=== PATIENT | male | born 1990 | race African-American/Black ===

== ENCOUNTER 2025-04-22 14:09 | Emergency (ER) | payer OTHER ==
[2025-04-22 15:02] LABS: Absolute Lymphocytes (CBC) 0.7 K/uL (0.7-4.9); Hematocrit 48.2 % (39.6-49.0); Hemoglobin 16.0 g/dL (13.6-17.9); MCH 28.1 pg (27.0-35.0); MCHC 33.2 g/dL (32.0-36.0); MCV 84.8 fL (80-100); MPV 7.8 fL (7.6-11.3); Nucleated RBC Absolute Count 0.0 (0-0); Nucleated Red Blood Cells % 0.0 % (0-0); RBC Red Blood Cell Count 5.69 M/uL (4.33-5.43); White Blood Count 2.70 thou/uL (4.3-10.9)
[2025-04-22 15:08] LABS: Sqamous Epithelial <5 /HPF (None Seen); Urine Culture Reflex Order NOT NEEDED; Urine Microscopic Reflex YN ORDER UMIC
[2025-04-22 15:15] LABS: METHAMPHETAM NEGATIVE (NEGATIVE); THC Cannibis NEGATIVE (NEGATIVE)
[2025-04-22 15:30] LABS: ALT/SGPT 38.0 U/L (16-61); AST/SGOT 22.0 U/L (15-37); Albumin 4.2 g/dL (3.4-5.0); Albumin/Globulin Ratio 1.1 (1.1-1.8); Alkaline Phosphatase 81.0 U/L (45-117); Anion Gap 7.7 mEq/L (5.0-15.0); BUN Blood Urea Nitrogen 14.0 mg/dL (7-18); Bilirubin Indirect, Calculated 1.0 mg/dL (0.2-0.8); Globulin 3.9 g/dL (2.3-3.5); Glucose Level 110.0 mg/dL (74-106); Magnesium 2.4 mg/dL (1.6-2.4); Potassium 3.7 mEq/L (3.5-5.1); Thyroid Stimulating Hormone 0.46 uIU/mL (0.358-3.740); Troponin High Sensitivity 28.7 pg/mL (<58.9)
--- NOTE | 2025-04-22 16:16 | RAD REPORT ---
EXAM: Chest Single View HISTORY: 34 years Male PALPITATIONS COMPARISON: No prior exams FINDINGS: LUNGS/PLEURA: The lungs are clear. No pleural effusions or pneumothorax. No pulmonary edema. CARDIAC/MEDIASTINUM: The cardiac silhouette is within normal limits. UPPER ABDOMEN: No significant abnormality. BONES: No acute abnormality. LINES/TUBES/OTHER: N/A IMPRESSION: No evidence of acute cardiopulmonary disease.
[2025-04-22 17:29] LABS: Blood Morphology Comment NOT SEEN (NOT SEEN); White Blood Cell Scan OK (OK)
--- NOTE | 2025-04-22 17:41 | EDPHYS ---
Physician Documentation [facility] Name: Katie Bennett Age: 34 yrs Sex: Male : 1990 Arrival Date: 04/22/2025 Time: 14:09 Bed 14 Private MD: ED Physician Peter Jacobsen HPI: 04/22 14:25 This 34 yrs old Black Male presents to ER via Ambulatory with complaints of Heart cp racing,head pressure, fatigue. 14:25 The patient presents with a history of heart racing. cp 14:25 Context: The symptoms occur at rest. cp 14:25 Onset: The symptoms/episode began/occurred for months, intermittent. Associated signs cp and symptoms: Pertinent positives: fatigue, head pressure, weight loss. Severity of symptoms: in the emergency department the symptoms have improved. Historical: - Allergies: 14:22 PENICILLINS; hb 14:22 Zithromax; hb - Home Meds: 14:22 None [Active]; hb - PMHx: 14:22 Asthma; hb - PSHx: 14:22 None; hb - Immunization history:: Adult Immunizations up to date. - Infectious Disease History:: Denies. - Social history:: Smoking status: Patient denies any tobacco usage or history of. ROS: 14:30 Constitutional: Positive for fatigue, weight loss, Negative for body aches, chills, cp fever, 14:30 Eyes: Negative for injury, pain, redness, and discharge, cp 14:30 ENT: Negative for drainage from ear(s), ear pain, sore throat, 14:30 Cardiovascular: Positive for palpitations, Negative for edema, 14:30 Respiratory: Negative for cough, shortness of breath, wheezing, 14:30 Abdomen/GI: Negative for abdominal pain, vomiting, diarrhea, constipation, 14:30 Neuro: Positive for headache, Negative for altered mental status, numbness, syncope, near syncope, weakness, 14:30 All other systems are negative, Exam: 14:35 Constitutional: The patient appears in no acute distress, alert, awake, cp non-diaphoretic, non-toxic, well developed, well nourished, 14:35 Head/Face: Normocephalic, atraumatic. cp 14:35 Eyes: Periorbital structures: appear normal, Conjunctiva: normal, no exudate, no injection, Sclera: no appreciated abnormality, Lids and lashes: appear normal, bilaterally, 14:35 ENT: External ear(s): are unremarkable, Nose: is normal, Mouth: Lips: moist, Oral mucosa: moist, Posterior pharynx: Airway: no evidence of obstruction, patent, 14:35 Neck: ROM/movement: is normal, is supple, without pain, no range of motions limitations, 14:35 Chest/axilla: Inspection: normal, Palpation: is normal, no crepitus, no tenderness, 14:35 Cardiovascular: Rate: normal, Rhythm: regular, Edema: is not appreciated, JVD: is not appreciated, 14:35 Respiratory: the patient does not display signs of respiratory distress, Respirations: labored breathing, is not present, intercostal retractions, are absent, shallow respirations, are not present, Breath sounds: decreased breath sounds, are not appreciated, stridor, is not appreciated, wheezing: is not appreciated, 14:35 Abdomen/GI: Inspection: abdomen appears normal, Bowel sounds: active, all quadrants, Palpation: abdomen is soft and non-tender, in all quadrants, 14:35 Back: pain, is absent, ROM is normal, 14:35 Neuro: Orientation: to person, place \T\ time. Mentation: is normal, Cerebellar function: is grossly normal, Motor: moves all fours, strength is normal, Sensation: is normal, Gait: is steady, at a normal pace, without difficulty, 14:40 ECG was reviewed by the Attending Physician. cp Vital Signs: 14:18 BP 130 / 71; Pulse 98; Resp 16; Temp 98.4(O); Pulse Ox 100% on R/A; Weight 71.21 kg; hb Height 6 ft. 0 in. ; Pain 0/10; 15:00 BP 122 / 67; Pulse 73; Resp 16; Pulse Ox 99% on R/A; db 15:30 BP 118 / 72; Pulse 75; Resp 24; Pulse Ox 99% ; db 16:00 BP 105 / 85; Pulse 82; Resp 20; Pulse Ox 100% ; db 16:45 BP 125 / 62; Pulse 79; Resp 16; Pulse Ox 98% on R/A; db 17:30 BP 131 / 74; Pulse 71; Resp 20; Pulse Ox 98% ; db 18:00 BP 127 / 77; Pulse 73; Resp 18; Pulse Ox 99% ; db 14:18 Body Mass Index 21.29 (71.21 kg, 182.88 cm) hb 14:18 Pain Scale: Adult hb MDM: 14:24 Medical Screening Exam initiated 15:00 Differential diagnosis: arrythmia, dehydration, stress disorder, hyperthyroidism, cp hypothyroidism, illegal drug use. 17:40 Data reviewed: vital signs, nurses notes, lab test result(s), EKG, radiologic studies, cp plain films, and as a result, I will discharge patient. 17:41 I considered the following discharge prescriptions or medication management in the emergency department Medications were administered in the Emergency Department. See MAR. 17:41 Independent interpretation of the following test(s) in the Emergency Department EKG: See my EKG interpretation above. Counseling: I had a detailed discussion with the patient and/or guardian regarding the historical points, exam findings, and any diagnostic results supporting the discharge/admit diagnosis, lab results, radiology results, the need for outpatient follow up, for definitive care, a home care liaison, to return to the emergency department if symptoms worsen or persist or if there are any questions or concerns that arise at home. Response to treatment: the patient's symptoms have mildly improved after treatment, and as a result, I will discharge patient. 04/22 14:21 Order name: Basic Metabolic Panel; Complete Time: 15:31 04/22 15:31 Interpretation: Normal except: GLUC 110; GFR 89. 04/22 14:21 Order name: CBC with Diff; Complete Time: 17:37 04/22 15:31 Interpretation: Normal except: WBC 2.70; RBC 5.69; NEUT A 1.7. 04/22 14:21 Order name: LFT's; Complete Time: 15:31 04/22 15:31 Interpretation: Normal except: BILIT 1.3; BILID 0.3; IBILI, CALC 1.0; GLOB 3.9. 04/22 14:21 Order name: Magnesium; Complete Time: 15:31 04/22 14:21 Order name: Troponin HS; Complete Time: 15:31 04/22 15:32 Interpretation: Reviewed. 04/22 14: Order name: TSH; Complete Time: 15:31 04/22 14:21 Order name: T3 Free; Complete Time: 15:31 cp 04/22 14:21 Order name: UDS; Complete Time: 15:31 cp 04/22 15:32 Interpretation: Reviewed. 04/22 14:21 Order name: UA Rfx Vipul Cult if indicated; Complete Time: 15:31 cp 04/22 15:31 Interpretation: Normal except: UKET 2+; UBLD Trace; UPROT TRACE; URBC 5-10; SPERM cp Present. 04/22 16:26 Order name: Troponin High Sensitivity; Complete Time: 17:37 cp 04/22 17:38 Interpretation: Reviewed. 04/22 17:03 Order name: CBC Smear Scan; Complete Time: 17:37 EDMS 04/22 14:21 Order name: XRAY Chest (1 view); Complete Time: 16:26 cp 04/22 14:21 Order name: Cardiac monitoring; Complete Time: 14:36 cp 04/22 14:21 Order name: EKG - Nurse/Tech; Complete Time: 14:36 cp 04/22 14:21 Order name: IV Saline Lock; Complete Time: 14:55 cp 04/22 14:21 Order name: Labs collected and sent; Complete Time: 14:55 cp 04/22 14:21 Order name: O2 Per Protocol; Complete Time: 14:55 cp 04/22 14:21 Order name: O2 Sat Monitoring; Complete Time: 14:55 cp EC:40 Rate is 74 beats/min. Rhythm is regular. ND interval is normal. QRS interval is normal. cp QT interval is normal. Interpreted by me. Reviewed by me. Administered Medications: No medications were administered Disposition: 18:29 Co-signature as Attending Physician, Peter Jacobsen MD I reviewed the patient's care rn provided by the Advanced Practice Provider and agree with the diagnosis and treatment plan. Disposition Summary: 04/22/25 17:41 Discharge Ordered Notes: Location: Home cp Problem: new cp Symptoms: have improved cp Condition: Stable cp Diagnosis - Palpitations cp - Other malaise and fatigue cp Followup: cp - With: Pb Aleman MD - When: 2 - 3 days - Reason: palpitations Discharge Instructions: - Discharge Summary Sheet cp - Palpitations cp - Fatigue cp - Ambulatory Cardiac Monitoring cp Forms: - Medication Reconciliation Form cp - Antibiotic Education cp - Prescription Opioid Use cp - Patient Portal Instructions cp - Leadership Thank You Letter cp Signatures: Dispatcher Medst EDMS Peter Jacobsen MD MD rn Page, Corey PA-Deepthi PA-C Katelin Chavarria, FAUSTO RN Corrections: (The following items were deleted from the chart) 14:21 14:21 BASIC METABOLIC PANEL+C.LAB.BRZ ordered. EDMS EDMS 14:21 14:21 CBC+H.LAB.BRZ ordered. EDMS EDMS 14:21 14:21 HEPATIC FUNCTION+C.LAB.BRZ ordered. EDMS EDMS 14:21 14:21 MAGNESIUM+C.LAB.BRZ ordered. EDMS EDMS 14:21 14:21 Troponin High Sensitivity+C.LAB.BRZ ordered. EDMS EDMS 14:21 14:21 THYROID STIMULAT HORMONE+C.LAB.BRZ ordered. EDMS EDMS 14:21 14:21 T3 FREE+C.LAB.BRZ ordered. EDMS EDMS 14:21 14:21 URINE DRUG SCREEN+UC.LAB.BRZ ordered. EDMS EDMS 14:21 14:21 UA Rfx Vipul Cult if indicated+U.LAB.BRZ ordered. EDMS EDMS
--- NOTE | 2025-04-22 17:41 | ER ---
Nurse's Notes [facility] Name: Katie Bennett Age: 34 yrs Sex: Male : 1990 Arrival Date: 04/22/2025 Time: 14:09 Bed 14 Private MD: Diagnosis: Palpitations;Other malaise and fatigue Presentation: 04/22 14:18 Chief complaint: Intermittent palpitations and SOB x months, dizziness, fatigue and hb recent 20 pound weight loss. Denies chest pain. Coronavirus screen: At this time, the client does not indicate any symptoms associated with coronavirus-19. Ebola Screen: No symptoms or risks identified at this time. Initial Sepsis Screen: Does the patient meet any 2 criteria? No. Patient's initial sepsis screen is negative. Does the patient have a suspected source of infection? No. Patient's initial sepsis screen is negative. Risk Assessment: Do you want to hurt yourself or someone else? Patient reports no desire to harm self or others. Onset of symptoms is unknown. 14:18 Method Of Arrival: Ambulatory hb 14:18 Acuity: CLEMENCIA 3 hb Historical: - Allergies: 14:22 PENICILLINS; hb 14:22 Zithromax; hb - Home Meds: 14:22 None [Active]; hb - PMHx: 14:22 Asthma; hb - PSHx: 14:22 None; hb - Immunization history:: Adult Immunizations up to date. - Infectious Disease History:: Denies. - Social history:: Smoking status: Patient denies any tobacco usage or history of. Screenin:51 [facility] ED Fall Risk Assessment (Adult) History of falling in the last 3 months, db including since admission No falls in past 3 months (0 pts) Confusion or Disorientation No (0 pts) Intoxicated or Sedated No (0 pts) Impaired Gait No (0 pts) Mobility Assist Device Used No (0 pt) Altered Elimination No (0 pt) Score/Fall Risk Level 0 - 2 = Low Risk Oriented to surroundings, Maintained a safe environment. Abuse screen: Denies threats or abuse. Denies injuries from another. Nutritional screening: No deficits noted. Tuberculosis screening: No symptoms or risk factors identified. Assessment: 16:00 Reassessment: Patient appears in no apparent distress at this time. Patient and/or db family updated on plan of care and expected duration. Pain level reassessed. Patient is alert, oriented x 3, equal unlabored respirations, skin warm/dry/pink. General: Appears in no apparent distress. comfortable, Behavior is calm, cooperative. Pain: Complains of pain in head and chest. Neuro: Level of Consciousness is awake, alert, obeys commands, Oriented to person, place, time, situation. Respiratory: Airway is patent Respiratory effort is even, unlabored, Respiratory pattern is regular, symmetrical. 17:00 Reassessment: Patient appears in no apparent distress at this time. Patient and/or db family updated on plan of care and expected duration. Pain level reassessed. Patient is alert, oriented x 3, equal unlabored respirations, skin warm/dry/pink. 18:05 Reassessment: Patient appears in no apparent distress at this time. Patient and/or db family updated on plan of care and expected duration. Pain level reassessed. Patient is alert, oriented x 3, equal unlabored respirations, skin warm/dry/pink. Patient states feeling better. Patient states symptoms have improved. Vital Signs: 14:18 BP 130 / 71; Pulse 98; Resp 16; Temp 98.4(O); Pulse Ox 100% on R/A; Weight 71.21 kg; hb Height 6 ft. 0 in. ; Pain 0/10; 15:00 BP 122 / 67; Pulse 73; Resp 16; Pulse Ox 99% on R/A; db 15:30 BP 118 / 72; Pulse 75; Resp 24; Pulse Ox 99% ; db 16:00 BP 105 / 85; Pulse 82; Resp 20; Pulse Ox 100% ; db 16:45 BP 125 / 62; Pulse 79; Resp 16; Pulse Ox 98% on R/A; db 17:30 BP 131 / 74; Pulse 71; Resp 20; Pulse Ox 98% ; db 18:00 BP 127 / 77; Pulse 73; Resp 18; Pulse Ox 99% ; db 14:18 Body Mass Index 21.29 (71.21 kg, 182.88 cm) hb 14:18 Pain Scale: Adult hb ED Course: 14:13 Patient arrived in ED. mr 14:15 [facility] cp 14:15 Peter Jacobsen MD is Attending Physician. cp 14:15 Peter Jacobsen MD is Attending Physician. cp 14:22 Triage completed. hb 14:23 Arm band placed on. hb 14:36 EKG done, by ED staff, reviewed by Noah Watson PA-C. pm7 14:38 Aniyah Troy, RN is Primary Nurse. db 14:55 Initial lab(s) drawn, by me, sent to lab. Inserted saline lock: 20 gauge in right rk3 antecubital area, using aseptic technique. Blood collected. Flushed with 10 mL NS. 16:07 XRAY Chest (1 view) In Process Unspecified. EDMS 16:51 Patient has correct armband on for positive identification. Bed in low position. Call db light in reach. Side rails up X 1. Client placed on continuous cardiac and pulse oximetry monitoring. NIBP monitoring applied. alarm security or surveillance monitor on. Pulse ox on. NIBP on. Warm blanket given. Pillow given. 16:51 Repeat lab(s) drawn. by me, sent to lab. db 17:40 Pb Aleman MD is Referral Physician. cp 18:04 Provided Education on: DISCHARGE AND FOLLOWUP. db 18:04 No provider procedures requiring assistance completed. IV discontinued, intact, db bleeding controlled, No redness/swelling at site. Administered Medications: No medications were administered Medication: 16:58 VIS not applicable for this client. db Outcome: 17:41 Discharge ordered by . cp 18:04 Discharged to home ambulatory, with family, db 18:04 Condition: stable 18:04 Discharge instructions given to patient, family, Instructed on discharge instructions, follow up and referral plans. 18:06 Patient left the ED. db Signatures: Dispatcher [employer] EDWV Araseli Boyce, [facility] Reg Shirley DENNIS Zamora PA-C, cp, Heather, RN RN Aniyah Troy, RN RN db Yon Graham rk3 Nat Gallo pm7
[2025-04-22 18:49] VITALS: TEMP 98.4
[2025-04-22 18:59] VITALS: BP 127/77; O2SAT 99
== END 2025-04-22 18:06 | disposition home or self-care (01) ==
LOC: ER 14:09
DX: R00.2 Palpitations (principal); R53.83 Other fatigue; R53.81 Other malaise; R06.02 Shortness of breath; Z88.0 Allergy status to penicillin; Z88.1 Allergy status to other antibiotic agents
CPT/HCPCS: 36415; 71045; 80048; 80076; 80307; 81001; 83735; 84443; 84481; 84484; 85025; 93005; 99284